=== PATIENT | male | born 1980 | race Caucasian/White ===

== ENCOUNTER 2018-06-03 19:48 | Emergency (ER) | payer SELFPAY ==
[~2018-06-03] VITALS: Ht 182.9 cm; Wt 82.8 kg
[~2018-06-03 19:48] MED LIST: AMOXICILLIN500 MG OR; BENADRYL 50MG C50 MG OR; CEPHALEXIN500 MG PO; FLEXERIL OR; LISINOPRIL20 MG PO; LORTAB 10 PO; LORTAB 5 OR; NAPROSYN500 MG OR; NO HOME MEDS; PENICILLN VK500 MG OR; PERCOCET 10/31 COMBO PO; ULTRAM50 M1 OR; ZPAK PO
[2018-06-03] MEDS ORDERED: [UNRECOGNIZED DRUG - OTHER] TOP (20:25)
[2018-06-03] MEDS ORDERED: BENADRYL 50MG C50 MG PO (20:28)
[2018-06-03] MEDS ORDERED: BETAMETH DIP0.053 EX (20:28)
[2018-06-03 20:35] VITALS: BP 136/92
== END 2018-06-03 20:35 | disposition home or self-care (01) | DRG 607 ==
LOC: ED 19:48
DX: L25.9 Unspecified contact dermatitis, unspecified cause (principal); F17.210 Nicotine dependence, cigarettes, uncomplicated